=== PATIENT | female | born 2000 | race Caucasian/White ===

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

== ENCOUNTER 2021-06-15 10:58 | Emergency (ER) | payer OTHER ==
[~2021-06-15] VITALS: Ht 160 cm; Wt 61.2 kg
[2021-06-15] MEDS ORDERED: ARIPIPRAZOLE2 MG PO (11:44)
[2021-06-15] MEDS ORDERED: CITALOPRAM HBR40 MG PO (11:44)
[2021-06-15] MEDS ORDERED: ONDANSETRON ODT4 MG PO (15:01)
== END 2021-06-15 15:22 | disposition home or self-care (01) ==
LOC: ED 10:58
DX: R11.2 Nausea with vomiting, unspecified (principal); Z20.822 Contact with and (suspected) exposure to COVID-19; Z91.048 Other nonmedicinal substance allergy status; Z79.899 Other long term (current) drug therapy
CPT/HCPCS: 80053; 81001; 83690; 83735; 84703; 85025; 96374; 96375; 99284-25; C9803; J1885; J2405; J7030; U0003

== ENCOUNTER 2021-09-30 15:39 | Emergency (ER) | payer OTHER ==
[~2021-09-30] VITALS: Ht 160 cm; Wt 63.9 kg
[~2021-09-30 15:39] MED LIST changes: +ARIPIPRAZOLE2 MG PO; +CELEXA20 MG PO; +CITALOPRAM HBR40 MG PO; +ONDANSETRON ODT4 MG PO
--- OUTSIDE RECORDS SUMMARY | 2021-09-30 15:52 | XMS ---
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 Tanya VISIT COUNT (12 MO.) 1 [facility]. 4 [facility] TOTAL 5 NOTE: Visits indicate total known visits. 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 ARM INJURY FALL AT WORK 0. Pain in left elbow 0. Pain in left upper arm 1. Strain of unspecified muscle, fascia and tendon at shoulder and upper arm level, left arm, initial encounter 2. Overexertion from prolonged static or awkward postures, initial encounter 2. Fall (on) (from) unspecified stairs and steps, initial encounter 2. Contusion of left elbow, initial encounter 2. Civilian activity done for income or pay INPATIENT VISIT TRACKING (12 MO.) No inpatient visits to display in this time frame [email or web address]
[2021-09-30] MEDS ORDERED: ARIPIPRAZOLE5 MG PO (16:07)
== END 2021-09-30 17:45 | disposition home or self-care (01) ==
LOC: ED 15:39
DX: S63.502A Unspecified sprain of left wrist, initial encounter (principal); S43.402A Unspecified sprain of left shoulder joint, initial encounter; Z91.048 Other nonmedicinal substance allergy status; Z79.899 Other long term (current) drug therapy; W01.0XXA Fall on same level from slipping, tripping and stumbling without subsequent striking against object, initial encounter; Y99.0 Civilian activity done for income or pay
CPT/HCPCS: 73030; 73110; 99283-25

== ENCOUNTER 2021-11-22 18:21 | Emergency (ER) | payer OTHER ==
[~2021-11-22] VITALS: Ht 160 cm; Wt 66.2 kg
[~2021-11-22 18:21] MED LIST changes: +ARIPIPRAZOLE5 MG PO
== END 2021-11-22 20:25 | disposition home or self-care (01) ==
LOC: ED 18:21
DX: F32.A Depression, unspecified (principal); F41.9 Anxiety disorder, unspecified; Z91.09 Other allergy status, other than to drugs and biological substances; Z79.899 Other long term (current) drug therapy
CPT/HCPCS: 80048; 81001; 84443; 84703; 85025; 99283; G0480

== ENCOUNTER 2025-05-21 13:06 | Emergency (ER) | payer OTHER ==
[~2025-05-21] VITALS: Ht 160 cm; Wt 66.1 kg
[2025-05-21] MEDS ORDERED: SODIUM CHLORIDE 0.9% 1,000 ML IV ONE (13:30)
[2025-05-21] MEDS ORDERED: TRAZODONE HCL50 MG PO (13:31)
[2025-05-21 13:38] LABS: BLOOD/HGB, URINE NEGATIVE (Negative); KETONE, URINE NEGATIVE (Negative); LEUK ESTERASE, URINE NEGATIVE (negative); NITRITE, URINE NEGATIVE (negative)
[2025-05-21 13:42] LABS: BASOPHILS 0.2 % (0.1-1.2); EOSINOPHILS 0.7 % (0.7-5.8); LYMPHOCYTES 16.0 % (19.3-51.7); MCH 27.6 PG (25.6-32.2); MCHC 32.2 g/dL (32.2-35.5); MCV 85.5 fL (79.4-94.8); MONOCYTES 7.1 % (4.7-12.5); NEUTROPHILS 75.7 % (34.0-71.1); RBC 4.97 M/uL (3.93-5.22)
[2025-05-21 13:59] LABS: ALT (SGPT) 19.0 U/L (14-59); AST (SGOT) 14.0 U/L (15-37); GLOMERULAR FILTRATION RATE,EST 122.0 mL/min (>60); PROTEIN, TOTAL 7.6 g/dL (6.4-8.2); UREA NITROGEN 7.0 mg/dL (7-18)
[2025-05-21] MEDS ORDERED: ONDANSETRON ODT8 MG PO (14:08)
[2025-05-21 14:37] VITALS: BP 130/82
== END 2025-05-21 14:37 | disposition home or self-care (01) ==
LOC: ED 13:06
PROVIDERS: Emergency Medicine
DX: R11.0 Nausea (principal); F43.10 Post-traumatic stress disorder, unspecified; Z79.899 Other long term (current) drug therapy; Z91.048 Other nonmedicinal substance allergy status
CPT/HCPCS: 36415; 80053; 81003; 83690; 84703; 85025; 96374; 99284-25; J2405; J7030